=== PATIENT | male | born 1945 | race Caucasian/White ===

== ENCOUNTER 2020-01-27 07:56 | Day surgery (SDC) | payer MEDICARE ==
[~2020-01-27] VITALS: Ht 167.6 cm; Wt 61.8 kg
[~2020-01-27 07:56] MED LIST: ASCO100072 PO; ASPI-515 PO; CA C1TAB60 PO; DENO60DI IM; FOLI0.4T2 PO; LEVO750T26 PO; METH2.5T PO; METO25TA35 PO; MULT-658 PO; OMEP40CA42 PO; OXYC-307 PO; PRED5TAB19 PO; TOCI400V IV
[2020-01-27] MEDS ORDERED: FURO20TA3 PO (08:40)
[2020-01-27] MEDS ORDERED: DEXL60CA2 PO (08:40)
[2020-01-27] MEDS ORDERED: APIX5TAB PO (08:40)
[2020-01-27 08:47] VITALS: BP 123/73
[2020-01-27] MEDS ORDERED: CHLORHEXIDINE 15 ML UDC MM ONE (09:00)
[2020-01-27] MEDS ORDERED: LACTATED RINGERS 1,000 ML IV SCH (09:00)
[2020-01-27] MEDS ORDERED: FENTANYL PF 250 MCG/5ML ONE (09:27)
[2020-01-27] MEDS ORDERED: CEFAZOLIN 1,000 MG ONE (09:32)
[2020-01-27] MEDS ORDERED: PROPOFOL 10 MG/ML, 20ML ONE (09:32)
[2020-01-27] MEDS ORDERED: morphine SULFATE 10 MG/ML, 1ML IVPush PRN (10:00)
[2020-01-27] MEDS ORDERED: hydrALAzine 20 MG/ML, 1ML IV PRN (10:00)
[2020-01-27] MEDS ORDERED: MEPERIDINE/PF 25MG/0.5ML IVPush PRN (10:00)
[2020-01-27] MEDS ORDERED: ONDANSETRON 2MG/ML, 2ML IVPush PRN (10:00)
[2020-01-27] MEDS ORDERED: ACETAMINOPHEN 325 MG TABLET PO PRN (10:00)
[2020-01-27] MEDS ORDERED: OXYcodone 5 MG/5 ML ORAL.SOL UDC PO PRN (10:00)
[2020-01-27] MEDS ORDERED: HYDROmorphone 1 MG/ML, 1ML INJ IVPush PRN (10:00)
[2020-01-27] MEDS ORDERED: LABETALOL 5MG/ML, 20ML IV PRN (10:00)
[2020-01-27] MEDS ORDERED: OXYcodone 5 MG/5 ML ORAL.SOL UDC ONE (11:08)
[2020-01-27] MEDS ORDERED: FENTANYL PF 100 MCG/2ML ONE (11:08)
[2020-01-27] MEDS: FENTANYL PF 100 MCG/2ML IV PRN ×2 (11:12→11:17)
== END 2020-01-27 13:10 | disposition home or self-care (01) ==
LOC: OUT 07:56
PROVIDERS: ATTEND Urology
DX: N35.911 Unspecified urethral stricture, male, meatal (principal); Z20.828 Contact with and (suspected) exposure to other viral communicable diseases; I10 Essential (primary) hypertension; K21.9 Gastro-esophageal reflux disease without esophagitis; M06.9 Rheumatoid arthritis, unspecified; Z79.01 Long term (current) use of anticoagulants; Z79.82 Long term (current) use of aspirin; Z79.891 Long term (current) use of opiate analgesic; Z79.899 Other long term (current) drug therapy; Z85.07 Personal history of malignant neoplasm of pancreas; Z85.21 Personal history of malignant neoplasm of larynx; Z86.718 Personal history of other venous thrombosis and embolism; Z88.2 Allergy status to sulfonamides; Z88.5 Allergy status to narcotic agent
CPT/HCPCS: 52281; 87635; 93005; C1726; C1758; J0690; J2704; J3010

== ENCOUNTER → 2020-08-18 | Outpatient (CLI) | payer MEDICARE ==
[~2020-08-18] MED LIST changes: +APIX5TAB PO; -ASPI-515 PO; +ASPI-963 PO; +DEXL60CA2 PO; -FOLI0.4T2 PO; +FOLI0.4T5 PO; +FURO20TA3 PO; -OXYC-307 PO; +OXYC-380 PO
[2020-08-18 14:26] LABS: MEAN CORPUSCULAR HEMOGLOBIN 30.8 pg (27.5-34.5); MEAN CORPUSCULAR HGB CONC 31.6 g/dL (33.2-36.2); PLATELET COUNT 147 x10^3/uL (130-400); RED BLOOD COUNT 4.22 x10^6/uL (4.38-5.82); RED CELL DISTRIBUTION WIDTH 23.3 % (9.4-14.8)
[2020-08-18 14:35] LABS: ALANINE AMINOTRANSFERASE 16 U/L (12-78); ALBUMIN 3.6 g/dL (3.4-5.0); ANION GAP 7 mmol/L (5-15); CALCIUM 8.7 mg/dL (8.5-10.1); CHLORIDE 110 mmol/L (98-107); CREATININE 1.06 mg/dL (0.7-1.3)
[2020-08-18 14:38] LABS: ALKALINE PHOSPHATASE 58 U/L (45-117); TOTAL PROTEIN 5.9 g/dL (6.4-8.2)
[2020-08-18 14:49] LABS: MICROSCOPIC INDICATED
[2020-08-18 15:00] LABS: MD YES
[2020-08-18 15:09] LABS: <PLATELET ESTIMATE> ADEQUATE; <PLT MORPHOLOGY> NORMAL PLT MORPH; BAND#(MANUAL) 0.06 x10^3/uL; BANDS%(MANUAL) 1 % (0-7); LYMPH#(MANUAL) 1.02 x10^3/uL (1-3.4); LYMPHS% (MANUAL) 16 % (22-44); MONOS#(MANUAL) 0.06 x10^3/uL (0.3-2.7); MONOS% (MANUAL) 1 % (2-9); SEG#(MANUAL) 5.25 x10^3/uL (1.8-6.8); SEGS% (MANUAL) 82 % (42-75)
[2020-08-18 15:10] LABS: ANISOCYTOSIS 1+; MICROCYTOSIS 1+; OVALOCYTES 1+
== END | disposition home or self-care (01) ==
LOC: STAR 13:01
PROVIDERS: ATTEND Urology
DX: Z01.812 Encounter for preprocedural laboratory examination (principal); Z20.822 Contact with and (suspected) exposure to COVID-19; N35.911 Unspecified urethral stricture, male, meatal; I48.91 Unspecified atrial fibrillation
CPT/HCPCS: 36415; 80053; 81001; 85025; 87086; 93005; U0003; U0005

== ENCOUNTER 2020-08-24 11:57 | Day surgery (SDC) | payer MEDICARE ==
[~2020-08-24] VITALS: Ht 165.1 cm; Wt 62.9 kg
[2020-08-24] MEDS ORDERED: CHLORHEXIDINE 15 ML UDC PO ONE (12:30)
[2020-08-24 12:43] VITALS: BP 152/101
[2020-08-24] MEDS ORDERED: LACTATED RINGERS 1,000 ML IV SCH (13:00)
[2020-08-24] MEDS ORDERED: OMNIPAQUE 350 MG/ML, 50 ML BOTTLE ONE (13:59)
[2020-08-24] MEDS ORDERED: FENTANYL PF 100 MCG/2ML ONE (14:16)
[2020-08-24] MEDS ORDERED: ACETAMINOPHEN 325 MG TABLET PO PRN (14:30)
[2020-08-24] MEDS ORDERED: HYDROmorphone 1 MG/ML, 1ML INJ IVPush PRN (14:30)
[2020-08-24] MEDS ORDERED: PROMETHAZINE 25 MG/ML, 1ML IVPush PRN (14:30)
[2020-08-24] MEDS ORDERED: METOPROLOL 1 MG/ML, 5ML IV PRN (14:30)
[2020-08-24] MEDS ORDERED: hydrALAzine 20 MG/ML, 1ML IV PRN (14:30)
[2020-08-24] MEDS ORDERED: LABETALOL 5MG/ML, 20ML IV PRN (14:30)
[2020-08-24] MEDS ORDERED: ONDANSETRON 2MG/ML, 2ML IVPush PRN (14:30)
[2020-08-24] MEDS ORDERED: METHOCARBAMOL 1,000 MG in DEXTROSE 5% 100 ML IV PRN (14:30)
[2020-08-24] MEDS ORDERED: OXYcodone 5 MG/5 ML ORAL.SOL UDC PO PRN (14:30)
[2020-08-24] MEDS ORDERED: FENTANYL PF 100 MCG/2ML IV PRN (14:30)
[2020-08-24] MEDS ORDERED: PROMETHAZINE 25 MG SUPP PR PRN (14:30)
[2020-08-24] MEDS ORDERED: PROPOFOL 10 MG/ML, 20ML ONE (14:44)
[2020-08-24] MEDS ORDERED: ONDANSETRON 2MG/ML, 2ML ONE (14:44)
[2020-08-24] MEDS ORDERED: CEFAZOLIN 1,000 MG ONE (14:44)
[2020-08-24] MEDS ORDERED: DEXAMETHASONE 4 MG/ML, 1ML ONE (14:44)
== END 2020-08-24 16:25 | disposition home or self-care (01) ==
LOC: OUT 11:57
PROVIDERS: ATTEND Urology
DX: N35.911 Unspecified urethral stricture, male, meatal (principal); I10 Essential (primary) hypertension; I48.91 Unspecified atrial fibrillation; Z79.01 Long term (current) use of anticoagulants; Z79.891 Long term (current) use of opiate analgesic; Z79.899 Other long term (current) drug therapy; Z86.718 Personal history of other venous thrombosis and embolism; Z87.891 Personal history of nicotine dependence
CPT/HCPCS: 52281; J0690; J1100; J2405; J2704; J3010; J7120; Q9967

== ENCOUNTER 2020-08-25 07:26 | Emergency (ER) | payer MEDICARE ==
[~2020-08-25] VITALS: Ht 165.1 cm; Wt 60.0 kg
[2020-08-25 08:07] LABS: BASOPHILS % (AUTO) 1 % (0-1); EOSINOPHILS % (AUTO) 2 % (1-7); LYMPHOCYTES % (AUTO) 23 % (22-44); MEAN CORPUSCULAR HEMOGLOBIN 30.9 pg (27.5-34.5); MEAN CORPUSCULAR HGB CONC 32.5 g/dL (33.2-36.2); MEAN PLATELET VOLUME 8.3 fL (7.4-10.4); MONOCYTES % (AUTO) 9 % (2-9); NEUTROPHILS % (AUTO) 66 % (42-75); PLATELET COUNT 101 x10^3/uL (130-400); RED BLOOD COUNT 4.29 x10^6/uL (4.38-5.82); RED CELL DISTRIBUTION WIDTH 23.6 % (9.4-14.8)
[2020-08-25 08:11] LABS: ALANINE AMINOTRANSFERASE 19 U/L (12-78); ANION GAP 8 mmol/L (5-15); CALCIUM 7.9 mg/dL (8.5-10.1); CHLORIDE 110 mmol/L (98-107); CREATININE 0.77 mg/dL (0.7-1.3)
[2020-08-25 08:15] LABS: ALKALINE PHOSPHATASE 66 U/L (45-117); BILIRUBIN,TOTAL 0.8 mg/dL (0.2-1.0); TOTAL PROTEIN 5.2 g/dL (6.4-8.2)
[2020-08-25 08:22] LABS: MICROSCOPIC AUTO
--- NOTE | 2020-08-25 08:48 | NUR ---
BLADDER SCAN PT AND TOLERATED WELL. 35ML IN BLADDER AT THIS TIME. POST HAND IRRIGATION
[2020-08-25 09:10] LABS: MD SCAN
[2020-08-25 09:34] VITALS: BP 112/67
--- NOTE | 2020-08-25 11:04 | NUR ---
Patient given discharge instructions and they have confirmed that they understand the instructions. Patient stable and wheeled to discharge desk, family member called for ride from ED.
== END 2020-08-25 11:05 | disposition home or self-care (01) ==
LOC: ED 08:28
DX: N40.1 Benign prostatic hyperplasia with lower urinary tract symptoms (principal); R33.8 Other retention of urine; I11.0 Hypertensive heart disease with heart failure; I50.9 Heart failure, unspecified; I48.91 Unspecified atrial fibrillation; M06.9 Rheumatoid arthritis, unspecified; R94.31 Abnormal electrocardiogram [ECG] [EKG]; Z87.891 Personal history of nicotine dependence
CPT/HCPCS: 36415; 51700; 71045; 80053; 81001; 83880; 85025; 87086; 93005; 99285